=== PATIENT | female | born 1975 | race Caucasian/White ===

== ENCOUNTER 2018-09-03 19:34 | Observation (INO) ==
[2018-09-03 20:03] LABS: Basophils % 0.2 % (0.0-0.8); Hemoglobin 13.6 GM/DL (12.0-16.0); Immature Granulocytes % 0.4 %; Immature Granulocytes Absolute 0.07 #; Lymphocytes # 0.7 10*3/uL (1.4-4.0); Lymphocytes % 3.6 % (21.3-54.2); Mean Corpuscular HGB Conc 33.2 GM/DL (32-36); Mean Corpuscular Hemoglobin 32 PG (27-34); Mean Corpuscular Volume 95.3 FL (87-102); Mean Platelet Volume 9.6 FL (9.6-12.0); Monocytes % 5.1 % (1.7-12.7); Neutrophils # 17.1 10*3/uL (1.4-7.4); Neutrophils % 90.7 % (38.7-73.9); Platelet Count 249 T/CUMM (130-400); White Blood Count 18.9 T/CUMM (4-12)
[2018-09-03 20:40] LABS: Lymphocytes 5 % (20-55); Segmented Neutrophils 92 % (50-85); Total Cells Counted 100
[2018-09-03] MEDS ORDERED: MORPHINE 4 MG/1 ML VIAL IV STA (20:40)
[2018-09-03] MEDS ORDERED: ONDANSETRON 4 MG/2 ML VIAL IV STA (20:40)
[2018-09-03] MEDS ORDERED: SODIUM CHLORIDE 0.9% 1,000 ML IV STA ×2 (20:40→22:21)
[2018-09-03 20:41] LABS: Anisocytosis Slight; Macrocytosis Slight
[2018-09-03 20:42] LABS: Platelet Estimate Normal
[2018-09-03] MEDS ORDERED: MORPHINE 4 MG/1 ML VIAL ONE (20:42)
[2018-09-03 20:57] LABS: Albumin 3.7 G/DL (3.4-5.0); Bilirubin,Total 0.6 MG/DL (0.2-1.0); Calcium 9.2 MG/DL (8.5-10.1); Osmolality,Calculated 281.5 MOS/KG (273-304); Potassium 4.4 MMOL/L (3.5-5.1); Total Protein 7.4 G/DL (6.4-8.3)
[2018-09-03 21:20] LABS: Apearance,Urine Slightly Hazy (Clear); Bacteria,Urine Occasional /HPF (Few); Bilirubin,Urine Small mg/dL (Negative); Blood, Urine Moderate mg/dL (Negative); Calcium Oxalate Crystals,Urine Few /HPF (Few); Glucose,Urine (UA) Negative (Negative); Ketones,Urine 20 mg/dL (Negative); Mucus,Urine Many /LPF (Occasional); Nitrite,Urine Negative (Negative); Protein,Urine 30 MG/DL; RBC,Urine 10 /HPF (0-4); Squamous Epithelial Cell,Urine Occasional /HPF (0-10); Urine Color Amber (Yellow); Urine Specific Gravity 1.025 (1.001-1.035); WBC,Urine 23 /HPF (0-6)
[2018-09-03] MEDS ORDERED: PROMETHAZINE 25 MG/1 ML VIAL ONE (21:41)
[2018-09-03] MEDS ORDERED: PROMETHAZINE 25 MG/1 ML VIAL IM STA (21:47)
[2018-09-03] MEDS ORDERED: KETOROLAC 30 MG/1 ML VIAL IV STA (22:03)
[2018-09-03] MEDS ORDERED: cefTRIAXone 1,000 MG in SODIUM CHLORIDE 0.9% 100 ML IV STA (22:21)
[2018-09-04] MEDS ORDERED: ONDANSETRON 4 MG/2 ML VIAL IV PRN (01:21)
[2018-09-04] MEDS ORDERED: MORPHINE 4 MG/1 ML VIAL IV PRN (01:21)
[2018-09-04] MEDS ORDERED: PROMETHAZINE 25 MG/1 ML VIAL IM PRN (01:21)
[2018-09-04] MEDS ORDERED: BISACODYL 10 MG SUPP RECTAL PRN (01:25)
[2018-09-04] MEDS ORDERED: BISACODYL 5 MG TABLET PO PRN (01:25)
[2018-09-04] MEDS: SODIUM CHLORIDE 0.9% 1,000 ML IV SCH ×2 (03:05→11:27)
[2018-09-04 06:45] LABS: Basophils % 0.1 % (0.0-0.8); Hemoglobin 13.3 GM/DL (12.0-16.0); Immature Granulocytes % 0.6 %; Immature Granulocytes Absolute 0.11 #; Lymphocytes # 0.8 10*3/uL (1.4-4.0); Lymphocytes % 4.3 % (21.3-54.2); Mean Corpuscular HGB Conc 32.4 GM/DL (32-36); Mean Corpuscular Hemoglobin 32 PG (27-34); Mean Corpuscular Volume 97.4 FL (87-102); Mean Platelet Volume 9.6 FL (9.6-12.0); Monocytes # 1.1 10*3/uL (0.11-0.8); Monocytes % 6.3 % (1.7-12.7); Neutrophils # 15.9 10*3/uL (1.4-7.4); Neutrophils % 88.7 % (38.7-73.9); Platelet Count 252 T/CUMM (130-400); Red Blood Count 4.21 MC/CUMM (3.8-5.5); White Blood Count 17.9 T/CUMM (4-12)
[2018-09-04 07:16] LABS: Albumin 3.2 G/DL (3.4-5.0); Bilirubin,Total 0.6 MG/DL (0.2-1.0); Calcium 8.2 MG/DL (8.5-10.1); Potassium 4.2 MMOL/L (3.5-5.1); Total Protein 6.7 G/DL (6.4-8.3)
[2018-09-04] MEDS: PANTOPRAZOLE 40 MG TABLET PO SCH (09:25)
[2018-09-04 10:01] LABS: Band Neutrophils 4 % (0-10); Lymphocytes 3 % (20-55); Platelet Estimate Normal; Polychromasia Slight; Segmented Neutrophils 90 % (50-85); Total Cells Counted 100
[2018-09-04] MEDS: cefTRIAXone 1,000 MG in SYRINGE 1 EACH IV SCH (11:50)
[2018-09-05] MEDS: cefTRIAXone 1,000 MG in SYRINGE 1 EACH IV SCH (01:11)
[2018-09-05] MEDS: PANTOPRAZOLE 40 MG TABLET PO SCH (08:16)
[2018-09-05] MEDS: SODIUM CHLORIDE 0.9% 1,000 ML IV SCH (08:16)
[2018-09-05 08:34] VITALS: BP 113/60
== END 2018-09-05 11:20 | disposition home or self-care (01) ==
LOC: N.EDINP 19:34 → N.ED 19:34 → N.3E 09-04 01:51
PROVIDERS: ADMIT Internal Medicine; ATTEND Internal Medicine